=== PATIENT | female | born 1985 | race Asian ===

== ENCOUNTER 2020-12-13 09:06 | Outpatient (CLI) | payer OTHER ==
[2020-12-13 23:52] LABS: SARS-CoV-2 PCR by NAA Not Detected (NotDetected)
== END 2020-12-13 09:07 | disposition home or self-care (01) ==
LOC: CSHLAB 09:06
PROVIDERS: ATTEND Obstetrics & Gynecology
DX: Z20.822 Contact with and (suspected) exposure to COVID-19 (principal)
CPT/HCPCS: 87635; U0003; U0005

== ENCOUNTER 2020-12-17 05:41 | Inpatient (IN) | payer OTHER ==
[~2020-12-17 05:41] MED LIST: Acetaminophen 500 MG TAB PO PRN; Butorphanol Tartrate 1 MG/ML VIAL SLOW IVP PRN; Carboprost 250 MCG/ML AMP IM PRN; HYDROcodone/Acetaminophen 5/325 mg Tablet PO PRN; Ibuprofen 800 MG TAB PO PRN; Lactated Ringer's 1,000 ML IV SCH; Lidocaine 1% (PF) 30 ML VIAL SC PRN; Methylergonovine 0.2 MG/ML VIAL IM PRN; Misoprostol 200 MCG TAB PR PRN; NS / Oxytocin 40 units/1000ml 1,000 ML IV PRN; Ondansetron PF 4 MG/2 ML Vial IVP PRN; Promethazine HCl 25 MG/ML VIAL IM PRN; hydrALAZINE 20 MG/ML VIAL SLOW IVP PRN
[2020-12-17 06:06] VITALS: BMI 35.7
[2020-12-17] MEDS ORDERED: NS w/ Oxytocin 30 units 500 ML ONE (07:36)
[2020-12-17 07:48] LABS: Hemoglobin 11.3 g/dL (12.0-15.5); Mean Corpuscular HGB CONC 33.7 g/dL (32.0-36.0); Mean Corpuscular Hemoglobin 29.2 pg (27.0-33.0); Mean Corpuscular Volume 86.6 fl (81.6-98.3); Mean Platelet Volume 11.2 fl (7.4-10.4); Platelet Count 174 10x3/uL (150-450); RBC Distribution Width 12.7 % (11.5-14.5); Red Blood Cell (RBC) Count 3.87 10x6/uL (3.90-5.03); White Blood Cell (WBC) Count 6.6 10x3/uL (3.5-10.5)
[2020-12-17 08:18] LABS: Hep B Surf Ag Non-Reactive S/CO (NonReactive); Syphilis Antibody Nonreactive (Nonreactive); Syphilis Antibody Index 0.08 S/CO (<1.00 Non-Reactive)
[2020-12-17 08:34] LABS: HBSAg Index 0.18 S/CO (0-0.99)
[2020-12-17] MEDS ORDERED: Fentanyl 4 mcg/Bup 0.1% Cadd 100 ML ONE (09:35)
[2020-12-17] MEDS ORDERED: Promethazine HCl 25 MG/ML VIAL IM PRN (14:12)
[2020-12-17] MEDS ORDERED: Naloxone HCl 0.4 mg/ml Vial IVP PRN ×2 (14:12)
[2020-12-17] MEDS ORDERED: Acetaminophen 325 MG TAB PO PRN (14:12)
[2020-12-17] MEDS ORDERED: diphenhydrAMINE 50 MG/ML VIAL IVP PRN (14:12)
[2020-12-17] MEDS ORDERED: Ondansetron PF 4 MG/2 ML Vial IVP PRN (14:12)
[2020-12-17] MEDS ORDERED: Lactated Ringer's 500 ML IV PRN (14:12)
[2020-12-17] MEDS ORDERED: Communication Order-Pharmacy FS SCH (14:15)
[2020-12-17] MEDS ORDERED: Fentanyl 4 mcg/Bupivacaine 0.1% Cassette 100 ML EPIDURAL SCH (14:15)
[2020-12-17] MEDS ORDERED: ePHEDrine Sulfate 50 MG/10 ML VIAL SLOW IVP PRN (14:18)
[2020-12-17] MEDS ORDERED: Milk Of Magnesia 30 ML UDCUP PO PRN (17:28)
[2020-12-17] MEDS ORDERED: hydrALAZINE 20 MG/ML VIAL SLOW IVP PRN (17:28)
[2020-12-17] MEDS ORDERED: traMADol HCl 50 MG TAB PO PRN (17:28)
[2020-12-17] MEDS ORDERED: Bisacodyl 10 MG SUPP PR PRN (17:28)
[2020-12-17] MEDS ORDERED: Benzocaine-Menthol 82.5 ML CAN TOP PRN (17:28)
[2020-12-17] MEDS ORDERED: Lanolin Ointment 7 GM TUBE TOP PRN (17:28)
[2020-12-17] MEDS ORDERED: NS w/ Oxytocin 30 units 500 ML IV SCH (18:15)
[2020-12-17] MEDS: Docusate Calcium (SURFAK) 240 MG CAP PO SCH (21:49)
[2020-12-17] MEDS: Ibuprofen 800 MG TAB PO SCH (21:49)
[2020-12-18] MEDS: Ibuprofen 800 MG TAB PO SCH ×3 (05:22→21:19)
[2020-12-18] MEDS ORDERED: Adacel (T-DAP) 0.5 ML SYRINGE IM ONE (09:00)
[2020-12-18] MEDS: Ferrous Sulfate 325 MG TAB PO SCH ×2 (09:01→16:05)
[2020-12-18] MEDS: Docusate Calcium (SURFAK) 240 MG CAP PO SCH ×2 (09:33→21:19)
[2020-12-18] MEDS: Enoxaparin Sodium 40 MG/0.4 ML SYRINGE SC SCH (09:33)
[2020-12-18 20:21] VITALS: TEMP 99.4
[2020-12-19] MEDS: Ibuprofen 800 MG TAB PO SCH ×2 (05:21→13:54)
[2020-12-19] MEDS: Ferrous Sulfate 325 MG TAB PO SCH (07:41)
[2020-12-19 07:51] VITALS: BP 121/58
[2020-12-19] MEDS: Enoxaparin Sodium 40 MG/0.4 ML SYRINGE SC SCH (08:06)
[2020-12-19] MEDS: Docusate Calcium (SURFAK) 240 MG CAP PO SCH (08:06)
== END 2020-12-19 15:44 | disposition home or self-care (01) | DRG 806 ==
LOC: CSHLD 05:41 → CSHPP 20:06 → EDSTATUS 12-22 10:02
PROVIDERS: ADMIT Obstetrics & Gynecology; ATTEND Obstetrics & Gynecology
PROC: 10E0XZZ Delivery of Products of Conception, External Approach (ICD-10-PCS; principal; 2020-12-17)
PROC: 0HQ9XZZ Repair Perineum Skin, External Approach (ICD-10-PCS; 2020-12-17)
PROC: 3E033VJ Introduction of Other Hormone into Peripheral Vein, Percutaneous Approach (ICD-10-PCS; 2020-12-17)
DX: O99.12 Other diseases of the blood and blood-forming organs and certain disorders involving the immune mechanism complicating childbirth (principal); D68.61 Antiphospholipid syndrome; Z37.0 Single live birth; Z3A.39 39 weeks gestation of pregnancy; O70.1 Second degree perineal laceration during delivery
CPT/HCPCS: 51702; 85027; 86780; 86850; 86900; 86901; 87340; J1650; J2590

== ENCOUNTER 2023-10-12 05:32 | Inpatient (IN) | payer BC ==
[2023-10-12 05:57] VITALS: BMI 38.0
[2023-10-12] MEDS ORDERED: Tranexamic Acid 1,000 MG/10 ML VIAL IVP PRN (05:57)
[2023-10-12] MEDS ORDERED: Promethazine HCl 25 MG/ML VIAL IM PRN ×2 (05:57→08:22)
[2023-10-12] MEDS ORDERED: Acetaminophen 500 MG TAB PO PRN (05:57)
[2023-10-12] MEDS ORDERED: hydrALAZINE 20 MG/ML VIAL SLOW IVP PRN ×2 (05:57→18:12)
[2023-10-12] MEDS ORDERED: Ibuprofen 800 MG TAB PO PRN (05:57)
[2023-10-12] MEDS ORDERED: Carboprost 250 MCG/ML AMP IM PRN (05:57)
[2023-10-12] MEDS ORDERED: HYDROcodone/Acetaminophen 5/325 mg Tablet PO PRN ×2 (05:57)
[2023-10-12] MEDS ORDERED: Misoprostol 200 MCG TAB PR PRN (05:57)
[2023-10-12] MEDS ORDERED: Ondansetron PF 4 MG/2 ML Vial IVP PRN ×2 (05:57→08:22)
[2023-10-12] MEDS ORDERED: fentaNYL 50 mcg/mL 1 mL Vial SLOW IVP PRN (05:57)
[2023-10-12] MEDS ORDERED: Methylergonovine 0.2 MG/ML VIAL IM PRN (05:57)
[2023-10-12] MEDS ORDERED: Diphenoxylate HCl/Atropine Tablet PO PRN ×2 (05:57)
[2023-10-12] MEDS ORDERED: Lidocaine 1% (PF) 30 ML VIAL SC PRN (05:57)
[2023-10-12] MEDS ORDERED: Lactated Ringer's 1,000 ML IV SCH (06:15)
[2023-10-12] MEDS ORDERED: Oxytocin 30 units/NS 500 ML 500 ML IV SCH ×2 (06:15)
[2023-10-12 06:45] LABS: Hematocrit 36.9 % (34.9-44.5); Mean Corpuscular HGB CONC 35.2 g/dL (32.0-36.0); Mean Corpuscular Hemoglobin 29.6 pg (27.0-33.0); Mean Corpuscular Volume 84.1 fl (81.6-98.3); Mean Platelet Volume 10.4 fl (7.4-10.4); Platelet Count 212 10x3/uL (150-450); RBC Distribution Width 13.3 % (11.5-14.5); Red Blood Cell (RBC) Count 4.39 10x6/uL (3.90-5.03); White Blood Cell (WBC) Count 6.8 10x3/uL (3.5-10.5)
[2023-10-12] MEDS ORDERED: fentaNYL/Ropivacaine Epidural 100 ML ONE (07:07)
[2023-10-12 07:18] LABS: Syphilis Antibody Nonreactive (Nonreactive); Syphilis Antibody Index 0.13 S/CO (<1.00 Non-Reactive)
[2023-10-12 07:20] LABS: HBSAg Index 0.19 S/CO (0-0.99); Hep B Surf Ag - L&D Non-Reactive S/CO (NonReactive)
[2023-10-12] MEDS ORDERED: Bupivacaine 0.25% HCL 30 ML VIAL ONE (08:00)
[2023-10-12] MEDS ORDERED: Lactated Ringer's 500 ML IV PRN (08:22)
[2023-10-12] MEDS ORDERED: ePHEDrine Sulfate 50 MG/10 ML VIAL SLOW IVP PRN (08:22)
[2023-10-12] MEDS ORDERED: diphenhydrAMINE 50 MG/ML VIAL IVP PRN (08:22)
[2023-10-12] MEDS ORDERED: Naloxone HCl 0.4 mg/ml Vial IVP PRN ×2 (08:22)
[2023-10-12] MEDS ORDERED: Moisturizing Cream (Eucerin) 113 GM JAR TOP PRN (08:22)
[2023-10-12] MEDS ORDERED: Acetaminophen 325 MG TAB PO PRN (08:22)
[2023-10-12] MEDS ORDERED: Communication Order-Pharmacy FS SCH (08:30)
[2023-10-12] MEDS ORDERED: fentaNYL 2 mcg/Ropivacaine 0.2% Epidural 100 ML CADD EPIDURAL SCH (08:30)
[2023-10-12] MEDS ORDERED: Boostrix 0.5 ML (Tdap) VIAL (>/=7 yrs of age) IM ONE (18:12)
[2023-10-12] MEDS ORDERED: Benzocaine-Menthol 82.5 ML CAN TOP PRN (18:12)
[2023-10-12] MEDS ORDERED: traMADol HCl 50 MG TAB PO PRN (18:12)
[2023-10-12] MEDS ORDERED: Milk Of Magnesia 30 ML UDCUP PO PRN (18:12)
[2023-10-12] MEDS ORDERED: Bisacodyl 10 MG SUPP PR PRN (18:12)
[2023-10-12] MEDS ORDERED: Preparation H Ointment 28 GM TUBE PR PRN (18:12)
[2023-10-12] MEDS ORDERED: diphenhydrAMINE 25 MG CAP PO PRN (18:12)
[2023-10-12] MEDS ORDERED: Lanolin Ointment 7 GM TUBE TOP PRN (18:12)
[2023-10-12] MEDS ORDERED: Ferrous Sulfate 325 MG TAB PO SCH (18:30)
[2023-10-12] MEDS: Docusate 100 MG CAP PO SCH (21:15)
[2023-10-12] MEDS: Ibuprofen 800 MG TAB PO SCH (21:15)
[2023-10-13] MEDS: Ibuprofen 800 MG TAB PO SCH ×2 (05:14→14:08)
[2023-10-13] MEDS: Ferrous Sulfate 325 MG TAB PO SCH ×2 (07:05→07:06)
[2023-10-13] MEDS: Docusate 100 MG CAP PO SCH (07:49)
[2023-10-13] MEDS ORDERED: Prenatal Vitamin 1 TAB PO SCH (09:00)
[2023-10-13 12:05] VITALS: BP 139/80; TEMP 98.7
== END 2023-10-13 18:00 | disposition home or self-care (01) | DRG 806 ==
LOC: CSHLD 05:32 → CSHPP 20:00
PROVIDERS: ADMIT Obstetrics & Gynecology; ATTEND Obstetrics & Gynecology
PROC: 10E0XZZ Delivery of Products of Conception, External Approach (ICD-10-PCS; principal; 2023-10-12)
DX: O24.425 Gestational diabetes mellitus in childbirth, controlled by oral hypoglycemic drugs (principal); D68.61 Antiphospholipid syndrome; Z37.0 Single live birth; O99.12 Other diseases of the blood and blood-forming organs and certain disorders involving the immune mechanism complicating childbirth; Z3A.38 38 weeks gestation of pregnancy; Z79.82 Long term (current) use of aspirin; Z79.899 Other long term (current) drug therapy
CPT/HCPCS: 51702; 85027; 86780; 86850; 86900; 86901; 87340; 99285; S0020